=== PATIENT | female | born 1985 | race Caucasian/White ===

== ENCOUNTER 2024-11-02 20:13 | Inpatient (IN) | payer BC, OTHER ==
[2024-11-02] MEDS: Sodium Chloride 0.9% 1,000 ML IV STA (20:42)
[2024-11-02] MEDS: Pantoprazole 40 MG Vial IVPUSH ONE (20:42)
[2024-11-02] MEDS: Ondansetron 4 MG/2 ML SDV IVPUSH ONE (20:42)
[2024-11-02] MEDS: HYDROmorphone 0.5 MG/0.5 ML Syringe IVPUSH ONE (20:43)
[2024-11-02 20:54] LABS: BASOPHILS PERCENT AUTO 0.3 % (0.0-1.0); EOSINOPHILS PERCENT AUTO 0.3 % (0.0-6.0); HEMATOCRIT 40.7 % (37.0-47.0); HEMOGLOBIN 13.9 gm/dl (12.0-16.0); IMMATURE GRAN ABSOLUTE AUTO 0.04 K/mm3 (0.00-0.05); IMMATURE GRAN PERCENT AUTO 0.3 % (0.0-0.4); LYMPHOCYTES ABSOLUTE AUTO 2.4 K/mm3 (1.0-4.8); LYMPHOCYTES PERCENT AUTO 19.4 % (24.0-44.0); MEAN CORPUSCULAR HEMOGLOBIN 29.8 pg (28.0-32.0); MEAN CORPUSCULAR HGB CONC 34.2 g/dl (32.0-36.0); MEAN CORPUSCULAR VOLUME 87.3 fl (83.0-99.0); MEAN PLATELET VOLUME 11.6 fl (9.4-12.3); MONOCYTES PERCENT AUTO 8.2 % (0.0-8.0); NEUTROPHILS ABSOLUTE AUTO 8.9 K/mm3 (1.8-7.7); NEUTROPHILS PERCENT AUTO 71.5 % (41.0-71.0); PLATELET COUNT,PLT 333 K/mm3 (150-400); RED BLOOD CELL COUNT 4.66 M/mm3 (4.10-5.30); WHITE BLOOD CELL COUNT,WBC 12.49 K/mm3 (3.9-11.3)
[2024-11-02] MEDS: Sodium Chloride 0.9% 10 ML Syringe FLUSH PRN (20:55)
[2024-11-02] MEDS: Sodium Chloride 0.9% 10 ML Syringe FLUSH ONE (20:55)
[2024-11-02] MEDS: Iopamidol 612 MG/ML 100 ML Bottle IVPUSH ONE (21:10)
[2024-11-02 21:19] LABS: A/G RATIO 1.1 (1-2); ALBUMIN 4.1 g/dl (3.4-5.0); ANION GAP 11.6 (5-15); BILIRUBIN TOTAL 0.4 mg/dL (0.2-1.0); BUN/CREATININE RATIO 12.5 (14-18); CALCIUM 9.6 mg/dL (8.5-10.1); CREATININE 1.2 mg/dL (0.55-1.02); EST CRCL DRUG DOSING (CG) 49.29 mL/min; POTASSIUM,K 3.6 mEq/L (3.5-5.1); PROTEIN TOTAL,TP 7.7 g/dl (6.4-8.2)
[2024-11-02 22:57] LABS: APPEARANCE,URINE CLEAR (Clear); BILIRUBIN,URINE NEGATIVE (Negative); COLOR,URINE LIGHT YELLOW (Yellow); GLUCOSE,URINE NEGATIVE (Negative); KETONES,URINE NEGATIVE (Negative); LEUKOCYTE ESTERASE,URINE NEGATIVE (Negative); NITRITE,URINE NEGATIVE (Negative); OCCULT BLOOD,URINE NEGATIVE (Negative); PROTEIN,URINE NEGATIVE (Negative); UROBILINOGEN,URINE 0.2 (0.2-1.0)
[2024-11-02 23:07] LABS: RBC,URINE 0-5 /hpf (0-5); SQUAMOUS EPITHELIAL CELLS,UR 0-5 /hpf (0-5); WBC,URINE 0-5 /hpf (0-5)
[2024-11-02 23:08] LABS: BACTERIA,URINE FEW /hpf (FEW); MUCUS,URINE RARE /hpf (FEW)
[2024-11-03] MEDS: cefTRIAXone 1 GM Vial IVPUSH ONE (01:59)
[2024-11-03] MEDS: Lactated Ringers 1,000 ML IV SCH (02:35)
[2024-11-03] MEDS ORDERED: Naloxone 0.4 MG/ML SDV IVPUSH PRN (02:39)
[2024-11-03] MEDS ORDERED: Propofol 200 MG/20 ML SDV ONE (06:33)
[2024-11-03] MEDS ORDERED: fentaNYL 250 MCG/5 ML SDV ONE (06:33)
[2024-11-03] MEDS ORDERED: fentaNYL 100 MCG/2 ML SDV ONE (07:39)
[2024-11-03] MEDS ORDERED: dexmedeTOMIDine HCl 200 MCG/2 ML SDV ONE (07:41)
[2024-11-03] MEDS ORDERED: Ropivacaine 0.5% 5 MG/ML 30 ML SDV ONE (07:41)
[2024-11-03] MEDS ORDERED: Ondansetron 4 MG/2 ML SDV ONE (07:48)
[2024-11-03] MEDS ORDERED: Ketorolac 15 MG/ML SDV ONE (07:48)
[2024-11-03] MEDS ORDERED: Dexamethasone 4 MG/ML 5 ML MDV ONE (07:48)
[2024-11-03] MEDS ORDERED: Sugammadex Sodium 200 MG/2 ML VIAL IV ONE (07:48)
[2024-11-03] MEDS ORDERED: ceFAZolin 2 GM Vial ONE (08:00)
[2024-11-03] MEDS ORDERED: Lactated Ringers 1,000 ML IV ONE ×2 (08:00→08:30)
[2024-11-03] MEDS: EPINEPHrine 1 MG/ML SDV ONE (08:35)
[2024-11-03] MEDS: Bupivacaine 0.5% 30 ML SDV ONE (08:35)
[2024-11-03] MEDS: Ondansetron 4 MG/2 ML SDV IVPUSH PRN (10:15)
[2024-11-03] MEDS: Sodium Chloride 0.9% 1,000 ML IV ONE (13:15)
[2024-11-03] MEDS: Pantoprazole 40 MG Tab.CR PO SCH (13:15)
[2024-11-03] MEDS: HYDROmorphone 0.5 MG/0.5 ML Syringe IVPUSH PRN (13:22)
[2024-11-03 16:03] VITALS: BP 113/59; PULSE 57
[2024-11-04] MEDS ORDERED: cefTRIAXone 1 GM Vial IVPUSH SCH (02:00)
== END 2024-11-03 15:54 | disposition home or self-care (01) | DRG 419 ==
LOC: JD.ED 20:13 → JD.MS 11-03 01:26 → UNDOADMIN 11-03 01:26 → JD.MS 11-03 07:16
PROVIDERS: ADMIT Surgery; ATTEND Surgery
PROC: 3E023BZ Introduction of Anesthetic Agent into Muscle, Percutaneous Approach (ICD-10-PCS; 2024-11-03)
PROC: 0FT44ZZ Resection of Gallbladder, Percutaneous Endoscopic Approach (ICD-10-PCS; principal; 2024-11-03 08:00)
DX: K80.62 Calculus of gallbladder and bile duct with acute cholecystitis without obstruction (principal); D72.829 Elevated white blood cell count, unspecified; K21.9 Gastro-esophageal reflux disease without esophagitis; Z79.899 Other long term (current) drug therapy; Z98.891 History of uterine scar from previous surgery; Z90.710 Acquired absence of both cervix and uterus
CPT/HCPCS: 00790; 36415; 64488; 74177; 74177-26; 76705; 76705-26; 80053; 81001; 83690; 84703; 85025; 96361; 96374; 96375; 99285-25; A9270-GY; J0171; J0665; J0690; J0696; J1100; J1885; J2405; J2470; J2704; J2795; J3010; J7030; J7120; Q9967